=== PATIENT | male | born 1965 | race Caucasian/White ===

== ENCOUNTER 2016-05-19 09:59 | Outpatient (CLI) | payer OTHER ==
[~2016-05-19] VITALS: Ht 177.8 cm; Wt 134.1 kg
--- NOTE | ~2016-05-19 | HEMODYNAMI ---
PATIENT:PAZ DWYER MEDICAL RECORD: [id number] : 69 LOCATION:[facility] ADMISSION DATE: 05/19/16 Generatedon:05/19/201617:24 Patient name: PAZ DWYER Patient #: [id number] SSN: : Date of study: 05/19/2016 Page: Of Hemodynamic Procedure Report Patient Data Patient Demographics Procedure consent was obtained First Name: PAZ Gender: Male Last Name: REYMUNDO : 1965 Middle Initial: EDWARD Age: 50 year(s) Patient #: [id number] Race: Unknown Additional ID: [id number] Contact details Address: [address] [place] [address] State: [place] City: [place] Zip code: [address] Past Medical History Allergies: No known allergies Admission Admission Data Admission Date: 05/19/2016 Admission Time: 9:59 Arrival Date: 05/19/2016 Arrival Time: 12:00 Admit Source: Other Insurance Payor: Private health insurance Height (in.): 70 BSA: 2.46 (m2) Height (cm.): 177.8 BMI: 42.33 (kg/m2) Weight (lbs.): 295 Weight (kg.): 133.81 Lab Results Lab Result Date: 05/19/2016 Lab Result Time: 0:00 Biochemistry Name Units Result Min Max BUN mg/dl 12 --(-*--)-- 7 18 Creatinine mg/dl 0.8 --(-*--)-- 0.6 1.3 CBC Name Units Result Min Max Hemoglobin g/dl 17 --(---*)-- 13.5 17.5 Procedure Procedure Types Cath Procedure Diagnostic Procedure [facility] w/Coronaries PCI Procedure Coronary Stent Initial Procedure Description Procedure Date Procedure Date: 05/19/2016 Procedure Start Time: 17:05 Procedure End Time: 17:20 Procedure Staff Name Function Adonay Nelson RT Scrub Allen Farnsworth MD Performing Physician Jose C Toussaint RN Nurse Pancho Bahena RN Band Singer Brenden Youssef RT Monitor Antoinette Andrews RT Monitor Procedure Data Cath Procedure Fluoroscopy Diagnostic fluoroscopy Total fluoroscopy Time: 3.1 time: 3.1 min min Diagnostic fluoroscopy Total fluoroscopy dose: 937 dose: 937 mGy mGy Contrast Material Contrast Material Type Amount (ml) Isovue 370 93 Entry Location Entry Primary Successful Side Size Upsize Upsize Entry Closure Alston ccessful Closure Location (Fr) 1 (Fr) 2 (Fr) Remarks Device Remarks Radial Right 6 Fr Mechanical artery Short Compression Estimated blood loss: 5 ml Diagnostic catheters Device Type Used For End Catheter Placement Terumo Optitorque 5Fr Multi-vessel [place] 4.5 catheter Angiography Procedure Complications No complications Procedure Medications Medication Administration Route Dosage Oxygen NC 2 l/min Benadryl I.V. 50 mg Lidocaine 2% added to field 20 Heparin Flush Bag added to field 2 bags (1000units/500ml NS) 0.9% NaCl I.V. 100 ml/hr Versed I.V. 2 mg Fentanyl I.V. 100 mcg Versed I.V. 2 mg Fentanyl I.V. 100 mcg Heparin Bolus I.V. 5000 units Versed I.V. 2 mg Fentanyl I.V. 100 mcg Hemodynamics Rest BSA: 2.46 (m2) HGB: 17 (g/dl) O2 Consumption: Estimated: 292.3 (ml/min) O2 Consu mption indexed: Estimated:118.82 (ml/min/m) Heart Rate: 67 (bpm) Pressure Samples Time Site Value (mmHg) Purpose Heart Use Rate(bpm) 17:10 LV 168/97,101 Snapshot 74 Snapshots Pre Cath Intra NCS Post Cath Vital Signs Time Heart Resp SPO2 etCO2 [id number] NIBP (mmHg) Rhythm Pain Sedatio n Rate (ipm) (%) (mmHg) (mmHg) Status Level (bpm) 16:14:40 65 18 100 0 0 184/95(152) NSR 0 (11) 10(A) , No pain 16:19:00 64 18 100 0 0 180/92(138) NSR 0 (11) 10(A) , No pain 16:23:24 65 15 100 0 0 165/90(131) NSR 0 (11) 10(A) , No pain 16:27:38 61 15 99 0 0 146/82(100) NSR 0 (11) 10(A) , No pain 16:31:52 59 16 94 0 0 130/85(106) NSR 0 (11) 10(A) , No pain 16:36:04 59 17 96 0 0 150/72(122) NSR 0 (11) 10(A) , No pain 16:40:22 57 19 96 0 0 143/80(105) NSR 0 (11) 10(A) , No pain 16:45:15 59 17 99 0 0 160/83(112) NSR 0 (11) 10(A) , No pain 16:49:34 56 14 97 0 0 150/94(114) NSR 0 (11) 10(A) , No pain 16:54:57 63 17 97 0 0 162/93(112) NSR 0 (11) 10(A) , No pain 16:59:15 68 16 93 0 0 166/104(133) NSR 0 (11) 10(A) , No pain 17:03:33 70 16 95 0 0 176/102(128) NSR 0 (11) 10(A) , No pain 17:07:55 74 17 97 0 0 185/114(141) NSR 0 (11) 10(A) , No pain 17:12:20 83 15 94 0 0 175/103(143) NSR 0 (11) 9(A) , No pain 17:16:38 81 15 96 0 0 179/117(155) NSR 0 (11) 9(A) , No pain 17:20:58 78 17 97 0 0 162/98(130) NSR 0 (11) 10(A) , No pain 17:22:42 76 15 98 0 0 171/110(134) NSR 0 (11) 10(A) , No pain Medications Time Medication Route Dose Verified Delivered Reason Notes Effectiveness by by 16:14:33 Oxygen NC 2 Allen Woodall used for l/min Daja Toussaint digestion operator 16:14:42 Benadryl I.V. 50 mg Allen Woodall used for Daja Toussaint digestion operator 16:24:12 Lidocaine 2% added 20ml Allen Villa for local to vial Daja Farnsworth MD anesthetic field 16:24:17 Heparin Flush added 2 Allen Villa used for Bag to bags Daja Farnsworth MD procedure (1000units/500ml field NS) 16:24:25 0.9% NaCl I.V. 100 Allen Buffie Per physician ml/hr Daja Toussaint RN 17:05:36 Versed I.V. 2 mg Allen Buffie for sedation Daja Toussaint RN 17:05:43 Fentanyl I.V. 100 Allen Buffie for sedation mcg Daja Toussaint RN 17:10:14 Versed I.V. 2 mg Allen Buffie for sedation Daja Toussaint RN 17:10:19 Fentanyl I.V. 100 Allen Buffie for sedation mcg Daja Toussaint RN 17:15:13 Heparin Bolus I.V. 5000 Allen Buffie for VERIFI ED units Daja Toussaint RN anticoagulation WITH DR FARNSWORTH 17:17:39 Versed I.V. 2 mg Allen Buffie for sedation Daja Toussaint RN 17:17:42 Fentanyl I.V. 100 Allen Buffie for sedation mcg Daja Toussaint RN Procedure Log Time Note 15:40:11 Pancho Bahena RN sent for patient. Start room use. 15:56:19 Informed consent obtained and on chart 15:57:04 Admit Source: Other 15:57:19 Time tracking: Regular hours 15:57:23 Plan of Care:Hemodynamics will remain stable., Cardiac rhythm will remain stable., Comfort level will be maintained., Respiratory function will remain adequate., Patient/ family verbilizes understanding of procedure., Procedure tolerated without complication., Recovers from procedure without complications.. 15:57:25 Diagnostic Cath status Elective 16:02:48 Patient received from Outpatients to [facility] 2 Alert and oriented. Tansferred to table in Supine position. 16:02:49 Warm blankets applied, and ej hugger turned on for patient comfort. 16:02:50 Correct patient and procedure confirmed by team. 16:02:51 ECG and BP/O2 sat monitors applied to patient. 16:03:25 Pre-procedure instructions explained to patient. 16:03:26 Pre-op teaching completed and patient verbalized understanding. 16:03:27 Family in waiting room. 16:03:28 Patient NPO since Midnight. 16:13:29 Vital chart was started 16:13:32 Baseline sample Acquired. 16:14:05 Rhythm: sinus rhythm 16:14:33 Oxygen 2 l/min NC was given by Jose C Toussaint RN; used for procedure; 16:14:42 Benadryl 50 mg I.V. was given by Jose C Toussaint RN; used for procedure; 16:21:10 Full Disclosure recording started 16:21:16 H&P Date Dictated: 05/18/2016 Within 30 days and on chart., H&P Addendum completed by physician on day of procedure. (MUST COMPLETE FOR ALL OUTPATIENTS). 16:21:23 Patient allergic to No known allergies 16:21:25 Is the patient allergic to Iodine/contrast media? No. 16:21:27 Is patient on blood thinner?Yes 16:21:29 ACC The patient was administered the following blood thiners within the last 24 hours: ACCPlavix 16:21:34 Patient diabetic? No. 16:21:37 Previous problem with sedation/anesthesia? No ? 16:21:41 Snore? Yes 16:21:43 Sleep apnea? Yes 16:21:44 Deviated septum? No 16:21:45 Opens mouth fully? Yes 16:21:46 Sticks out tongue? Yes 16:21:48 Airway obstruction? No ? 16:21:51 Dentures? Yes IN 16:21:54 Pre procedure: right dorsailis pedis pulse 1+ Palpable, but thready & weak; easily obliterated 16:22:03 Modified Brendon's test Ulnar < 7 seconds 16:22:04 Patient pain scale 0/10 ?. 16:22:08 IV patent on arrival in left hand with 0.9% NaCl at O. 16:22:20 Lab results completed and on chart. 16:22:23 Right Radial & Right Groin area was prepped with chlora-prep and draped in sterile fashion 16:22:24 Alarms reviewed by R. N. 16:22:24 Sharps counted by scrub and verified by R.N. 16::46 Lab Result : BUN 12 mg/dl 16::46 Lab Result : Creatinine 0.8 mg/dl 16::46 Lab Result : Hemoglobin 17 g/dl 16:24:12 Lidocaine 2% 20ml vial added to field was given by Allen Farnsworth MD; for local anesthetic; 16:24:17 Heparin Flush Bag (1000units/500ml NS) 2 bags added to field was given by Allen Farnsworth MD; used for procedure; 16:24:25 0.9% NaCl 100 ml/hr I.V. was given by Jose C Toussaint RN; Per physician; 16:26:19 ACC Patient presents with Stable Angina CCS Anginal Class 2--Slight limitation of ordinary activity. 16:28:14 ACCPatient has been prescribed/administered the following anti-anginal medication within the last 2 weeks: Beta Maksim, Long-Acting Nitrates 16:28:30 Use device set Radial Dx 16:28:33 Tegaderm 4 x 4 opened to sterile field. 16:28:34 Acist Manifold opened to sterile field. 16:28:34 Acist Hand Control opened to sterile field. 16:28:37 Acist Syringe opened to sterile field. 16:28:37 Cardinal Cath Pack opened to sterile field. 16:28:37 Bag Decanter opened to sterile field. 16:28:38 Terumo 6Fr Slender Glidesheath opened to sterile field. 16:28:38 St Joe 260cm J .035 wire opened to sterile field. 16:29:27 Zero performed for pressure channel P1 16:32:11 Case delayed due to physician working in [facility]. 17:04:22 --------ALL STOP TIME OUT------ 17:04:23 Final Timeout: patient, procedure, and site verified with staff and physician. All members of the team are in agreement. 17:04:26 Right Radial & Right Groin site verified by team. 17:04:48 Physical assessment completed. ASA score P 3 - A patient with severe systemic disease as per Allen Farnsworth MD. 17:04:52 Sedation plan: IV Moderate Sedation Versed, Fentanyl 17:05:36 Versed 2 mg I.V. was given by Jose C Toussaint RN; for sedation; 17:05:43 Fentanyl 100 mcg I.V. was given by Jose C Toussaint RN; for sedation; 17:05:45 Procedure started. 17:05:52 Local anesthetic to right radial artery with Lidocaine 2% by Allen Farnsworth MD.INITIAL ACCESS ONLY 17:06:18 A 6 Fr Short sheath was inserted into the Right Radial artery 17:10:01 A Terumo Optitorque 5Fr [place] 4.5 catheter was advanced over the wire and used for Multi-vessel Angiography. 17:10:14 Versed 2 mg I.V. was given by Jose C Toussaint RN; for sedation; 17:10:19 Fentanyl 100 mcg I.V. was given by Jose C Toussaint RN; for sedation; 17:10:30 LV hemodynamics recorded. 17:10:31 LV gram done using BA 17:10:34 Injector settings: Ml/sec: 5, Volume: 15, 17:10:44 EF : 60 % 17:10:59 LCA angiography performed. 17:11:12 Injector settings: Ml/sec: 3, Volume: 6, 17:12:33 RCA angiography performed. 17:12:37 Injector settings: Ml/sec: 3, Volume: 6, 17:13:24 Catheter removed. 17:13:25 Proceeding to intervention. 17:15:13 Heparin Bolus 5000 units I.V. was given by Jose C Toussaint RN; for anticoagulation; VERIFIED WITH DR FARNSWORTH 17:15:42 Medtronic Launcher 6Fr AR 2.0 guide catheter opened to sterile field. 17:15:43 Darling Whisper J 300cm 0.014 guide wire opened to sterile field. 17:15:44 Enbase BasixCompak Inflation Kit opened to sterile field. 17:16:39 6 Fr ar 2 guide catheter was inserted over the wire 17:16:45 whisper wire advanced. 17:16:46 Wire advanced across lesion. 17:17:39 Versed 2 mg I.V. was given by Jose C Toussaint RN; for sedation; 17:17:42 Fentanyl 100 mcg I.V. was given by Jose C Toussaint RN; for sedation; 17:17:46 Inflation Number: 1 A Medtronic Integrity 3.0 X 18 stent was prepped and advanced across the Dist RCA. The stent was deployed at 17 SCAR for 0:10 (min:sec). 17:18:27 Stent catheter was removed intact over wire. 17:18:28 Wire removed. 17:18:28 Guide catheter removed. 17:19:01 Terumo TR Band Large opened to sterile field. 17:19:16 Sheath removed intact; hemostasis achieved with Mechanical Compression to the Right Radial artery. 17:19:22 Procedure ended.(Physican Out) 17:19:51 Fluoroscopy time 03.10 minutes. 17:19:56 Fluoroscopy dose: 937 mGy 17:19:56 Flurop Dose total: 937 17:20:01 Contrast amount:Isovue 370 93ml. 17:20:03 Sharps counted by scrub and verified by R.N. 17:20:06 TR band inflated with 12cc of air. 17:20:08 Insertion/operative site no bleeding no hematoma. 17:20:15 Post right radial artery:stable 17:20:17 Post Procedure Pulses reassessed and unchanged 17:20:20 Post procedure rhythm: unchanged. 17:20:22 Estimated blood loss: 5 ml 17:20:24 Post procedure instruction explained to patient.Patient verbalizes understanding. 17:20:24 Patient needs reinforcement of post procedure teaching. 17:20:34 Procedure type changed to Cath procedure, Diagnostic procedure, LHC, LHC w/Coronaries, PCI procedure, Coronary Stent Initial 17:20:35 Procedure and supply charges have been captured, reviewed, submitted and are correct. 17:20:40 Procedure Complication : No complications 17:20:42 Vital chart was stopped 17:20:44 See physician's report for complete and final results. 17:20:51 Report given to Outpatients. 17:20:54 Patient transfered to Outpatients with Stretcher. 17:20:55 Procedure ended. 17:20:55 Full Disclosure recording stopped 17:21:07 ACC-PCI Only Patient was given prescriptions, or instructed by Allen Farnsworth MD to start/continue the following medications upon discharge: Plavix 17:21:08 End room use (Document Last) 17:23:31 Arrival Date: 05/19/2016 12:00:00 PM 17:23:45 Insurance Payor : Private health insurance 17:23:52 Patient Height : 70 inches 17:23:55 Patient Weight : 295 lbs Intervention Summary Intervention Notes Time ActionType Lesion and Equipment Action# Pressure Duration Attributes Used 17:17:46 Place stent Dist RCA Medtronic 1 17 00:10 Integrity 3.0 X 18 stent Device Usage Item Name Manufacture Quantity Catalog Hospital Part Current Minimal Lot# / Number Charge Number Stock Stock Serial# Code Tegaderm 4 1 [id number] 100138 [id number] [id number] 5 x 4 Acist Acist 1 97619 440362 951364 631464 5 Platypus [employer] Acist Hand Acist 1 15654 111122 540567 229635 5 Control Medical Systems Inc Acist Acist 1 00266 746402 042908 738432 20 Syringe Medical Systems Inc Cardinal Cardinal 1 [id number] 826453 82957 222953 5 Cath Pack Health Bag Microtek 1 2002S 5542029 27743 746594 5 Decanter [employer] Inc. Terumo 6Fr Terumo 1 [id number] 885457 813641 497786 [address] [facility] 1 959500 900409 635752 149935 30 260cm J .035 wire Terumo Terumo 1 40-6392 955034 056567 511892 5 Optitorque 5Fr [place] 4.5 catheter Medtronic Medtronic 1 [id number] 377045 95957 436632 1 Launcher 6Fr [place] 2.0 guide catheter Darling Darling 1 [id number] 649851 007484 007869 5 Whisper J Vascular 300cm 0.014 guide wire [facility] 1 [id number] 539896 686499 391860 15 BasixCompak Medical Inflation Kit Medtronic Medtronic 1 [id number] 640678 303911 435664 4 [id number] Integrity 3.0 X 18 stent Terumo TR Terumo 1 [id number] 447451 512430 40 Band Large Signature Audit [place] Stage Time Signature Unsigned Intra-Procedure 05/19/2016 Antoinette Andrews 5:24:27 PM RT(R) Signatures Monitor : Brenden Youssef RT Signature : Date : Time : Monitor : Antoinette Andrews RT Signature : Date : Time : [facility] [address] [place] [address]
[2016-05-19] MEDS ORDERED: BYSTOLIC5 MG PO (11:19)
[2016-05-19] MEDS ORDERED: PLAVIX75 MG PO (11:19)
[2016-05-19] MEDS ORDERED: BAYER CHEWABLE81 MG PO (11:20)
[2016-05-19] MEDS ORDERED: ISOSORBIDE DINI30 MG PO (11:21)
[2016-05-19 11:28] LABS: BASOPHILS 0.5 % (0.0-2.0); EOSINOPHILS 2.6 % (0-7); HEMATOCRIT 49.8 % (42.0-54.0); IMMATURE GRANULOCYTES 0.5 % (0-5); LYMPHOCYTES 23.3 % (15-50); MCH 30.5 pg (26.0-34.0); MCHC 34.1 g/dL (31.0-37.0); MCV 89.2 fL (80.0-100.0); MEAN PLATELET VOLUME 9.1 fL (7.4-10.4); MONOCYTES 6.1 % (2-11); PLATELET COUNT 201 10x3/uL (130-400); RBC 5.58 10x6/uL (4.20-6.10); RDW 13.7 % (11.5-14.5); WBC 8.4 10x3/uL (4.8-10.8)
[2016-05-19 11:32] VITALS: BP 152/93; Ht 177.8 cm; Wt 134.1 kg
[2016-05-19 11:47] LABS: CALC OSMOLALITY 271 mosm/kg (275-300); CARBON DIOXIDE 27.3 mmol/L (21.0-32.0); CHLORIDE - SERUM 101 mmol/L (98-107); CREATININE - SERUM 0.8 mg/dL (0.6-1.3); GLUCOSE 97 mg/dL (74-106); POTASSIUM - SERUM 5.4 mmol/L (3.5-5.1); SODIUM 136 mmol/L (136-145); UREA NITROGEN 12 mg/dL (7-18); eGFR NON AFRICAN AMERICAN > 90 mL/min (90-120)
--- NOTE | 2016-05-19 18:08 | NUR ---
1735 BACK FROM BUSINESS PROCESS CONSULTANT HAS SLEEP APNEA PUT ON O2 2L N/C ROUSES BUR GOES BACK TO SLEEP. RT WRIST TRBAND ON NO BLEEDING RT RADIAL PULSE PRESENT.
--- NOTE | 2016-05-19 18:18 | NUR ---
1805 REMAINS WITH EYES CLOSED VERY DROWSY RT WRIST TRBAND ON NO BLEEDING RADIALPULSE PRESENT.
--- NOTE | 2016-05-19 19:25 | NUR ---
1825 TAKING IN FINGERFOOD TRAY.
--- NOTE | 2016-05-19 19:26 | NUR ---
192 RT WRIST TRBAND ON NO BLEEDING RADIAL PULSE PRESENT. NO NEEDS VOICED.
--- NOTE | 2016-05-19 19:45 | NUR ---
194 REPORT TO CAITLIN CARDOZO R.N.
--- NOTE | 2016-05-19 20:20 | NUR ---
2014 TRANSFERRED TO ROOM VIA W/C.
--- NOTE | 2016-05-19 20:45 | NUR ---
PT ARRIVES TO ROOM 2114 VIA STRETCHER FROM OUTPT. RIGHT WRIST WITH TR BAND. NO BLEEDING NOTED. SITE APPEARS CDI. DENIES ANY C/O PAIN. PLACED ON TELE, NSR ON MONITOR, HR 60. IV TO LEFT ARM WITH NS @ 100 CC/HR INFUSING. NO NEEDS VOICED. CALL LIGHT WITHIN REACH. WILL CONT TO MONITOR.
--- NOTE | 2016-05-19 21:47 | NUR ---
TR BAND REMOVED, NO BLEEDING NOTED. IV REMOVED FROM LEFT HAND, CATH REMOVED INTACT AND DRESSING PLACED TO SITE. TELEMETRY REMOVED AND PT GIVEN DISCHARGE INSTRUCTIONS. PRESCRIPTION FOR PLAVIX GIVEN TO PT. DOWN TO PERSONAL AUTO ACCOMPANIED BY FAMILY VIA WC.
--- NOTE | 2016-05-22 14:16 | OP ---
PATIENT NAME: PAZ DWYER MEDICAL RECORD: [id number] :69 LOCATION:D.CAT ADMISSION DATE: SURGEON: MAURISIO LAYNE MD DATE OF OPERATION: 05/19/2016 PROCEDURES: 1. PTCA stent RCA. 2. Left heart catheterization. 3. Selective coronary angiography. 4. Left ventriculogram. INDICATION: Unstable angina and coronary artery disease. PROCEDURE IN DETAIL: After informed consent was obtained and after a detailed explanation of the risks, benefits, as well as alternative therapies, the patient elected to proceed with angiogram and angioplasty. The right radial area was prepped and draped in normal sterile fashion. The right radial artery was cannulated via modified Seldinger technique with the placement of 6-Bolivian sheath. All catheters exchanged through this sheath. FINDINGS: The left ventriculogram was performed in standard 30-degree BA view, reveals good cardiac wall motion throughout all segments. Overall ejection fraction 55% to 60%. SELECTIVE CORONARY ANGIOGRAPHY: 1. Left main showed no significant angiographic disease. 2. Left anterior descending has a previously placed stent. This is widely patent. There is no disease elsewise throughout the LAD or its branches. 3. Left circumflex has a 50-70% stenosis in the mid vessel, otherwise only mild irregularities. 4. The right coronary has a 70% to 80% stenosis in the mid distal vessel. PTCA STENT OF THE RIGHT CORONARY: The stent used was a 3.0 x 18 mm Integrity. Result was 0% residual stenosis. OVERALL IMPRESSION: Successful percutaneous transluminal coronary angioplasty stent of the right coronary artery going from 70-80% initial stenosis to 0% residual. TRANSINT:[id number] Voice Confirmation ID: [id number] DOCUMENT ID: [id number] MAURISIO LAYNE MD at 1416 CC: [id number] DICTATION DATE: 05/19/16 1729 SECURITY RESEARCHER: 05/19/16 2335 [facility] CLI 05/19/[address] [address]
== END 2016-05-19 21:51 | disposition home or self-care (01) ==
LOC: D.CATH 09:59
PROVIDERS: Internal Medicine Interventional Cardiology
DX: I25.110 Atherosclerotic heart disease of native coronary artery with unstable angina pectoris (principal); I10 Essential (primary) hypertension; F17.200 Nicotine dependence, unspecified, uncomplicated